=== PATIENT | female | born 1940 | race African-American/Black ===

== ENCOUNTER 2021-03-27 06:19 | Inpatient (IN) | payer MEDICARE ==
[~2021-03-27] VITALS: Ht 165.1 cm; Wt 61.2 kg
[2021-03-27] MEDS ORDERED: HYDR-4135 MT (07:56)
[2021-03-27] MEDS ORDERED: FERR325T6 MT (07:56)
[2021-03-27] MEDS ORDERED: LEVO50TA8 MT (07:56)
[2021-03-27] MEDS ORDERED: GLYB5TAB7 PO (07:56)
[2021-03-27] MEDS ORDERED: ALLO100T MT (07:56)
[2021-03-27] MEDS ORDERED: ASPI-1406 MT (07:56)
[2021-03-27] MEDS ORDERED: CHOL200010 PO (07:56)
[2021-03-27] MEDS ORDERED: COR6 MT (07:56)
[2021-03-27] MEDS ORDERED: PRAV40TA58 MT (07:56)
[2021-03-27] MEDS ORDERED: SPIR25TA6 MT (07:56)
[2021-03-27] MEDS ORDERED: MAGN400T7 MT (07:56)
[2021-03-27] MEDS ORDERED: LISI2.5T47 MT (07:56)
[2021-03-27] MEDS ORDERED: POTA20TA82 MT (07:56)
[2021-03-27] MEDS ORDERED: SITA1TAB2 MT (07:56)
[2021-03-27] MEDS ORDERED: HEPARIN SODIUM 1,000 UNIT/1ML VIAL IV ONE (08:23)
[2021-03-27] MEDS ORDERED: LIDOCAINE HCL 1% 20ML VIAL (Pyxis) INJ ONE (08:23)
[2021-03-27] MEDS ORDERED: IODIXANOL 320MG/ML 100 ML BOTTLE IV ONE (08:24)
[2021-03-27] MEDS ORDERED: FENTANYL CITRATE/PF 50MCG/ML 2ML VIAL ONE (09:45)
[2021-03-27] MEDS ORDERED: MIDAZOLAM HCL 2 MG/2 ML VIAL ONE (09:46)
[2021-03-27] MEDS ORDERED: IOHEXOL-300 100 ML BOTTLE ONE (10:17)
[2021-03-27] MEDS ORDERED: ACETAMINOPHEN 325MG TABLET PO PRN (10:45)
[2021-03-27] MEDS ORDERED: ONDANSETRON HCL 4MG/2ML INJ IV PRN (10:45)
[2021-03-27] MEDS ORDERED: ATROPINE SULFATE 1MG/10ML SYR IV PRN (10:45)
[2021-03-27] MEDS ORDERED: CLOPIDOGREL 75MG TABLET ONE (10:51)
[2021-03-27] MEDS ORDERED: ASPIRIN 325MG TABLET ONE (10:51)
[2021-03-27 11:13] VITALS: BP 144/55
[2021-03-27 11:39] VITALS: BP 144/55
[2021-03-27] MEDS ORDERED: DEXTROSE 50% WATER 50ML SYRINGE IV PRN (17:00)
[2021-03-27] MEDS: BLOOD SUGAR DIAGNOSTIC STRIP TEST SCH ×2 (17:06→20:30)
[2021-03-27] MEDS: INSULIN LISPRO 100 UNITS/ML SUBCUT SCH ×2 (17:20→20:31)
[2021-03-27 20:04] VITALS: BP 135/54
[2021-03-27 22:04] VITALS: BP 146/51
[2021-03-28] VITALS (13 sets, daily range): BP systolic 102–189; BP diastolic 42–82
[2021-03-28] MEDS ORDERED: CLONIDINE 0.2MG TABLET PO PRN (01:45)
[2021-03-28] MEDS: BLOOD SUGAR DIAGNOSTIC STRIP TEST SCH ×2 (06:22→10:48)
[2021-03-28] MEDS: INSULIN LISPRO 100 UNITS/ML SUBCUT SCH ×2 (07:19→10:48)
[2021-03-28 07:33] LABS: BASOPHILS % 0.8 % (0.0-2.0); EOSINOPHILS % 2.7 % (0.0-5.0); HEMATOCRIT. 33.9 % (36.0-48.0); HEMOGLOBIN. 11.1 g/dL (12.0-16.0); LYMPHOCYTES % 23.2 % (20.0-50.0); MEAN CORPUSCULAR HEMOGLOBIN 28.9 pg (28.0-32.0); MEAN CORPUSCULAR VOLUME 88.3 fL (81.0-99.0); MEAN PLATELET VOLUME 10.1 fl (7.4-10.4); MONOCYTES % 10.1 % (2.0-8.0); NEUTROPHILS % 63.2 % (40.0-76.0); PLATELET 164 x1000/uL (130-400); RED BLOOD CELL COUNT 3.84 mill/uL (4.2-5.4); RED CELL DISTRIBUTION WIDTH 16.1 % (11.6-14.6)
[2021-03-28] MEDS ORDERED: ASPIRIN 325MG TABLET PO SCH (09:00)
[2021-03-28] MEDS ORDERED: CLOPIDOGREL 75MG TABLET PO SCH (09:00)
== END 2021-03-28 11:23 | disposition home health service (06) | DRG 254 ==
LOC: CCL 06:19 → 3WST 06:20
PROVIDERS: ADMIT Specialist; ATTEND Specialist
PROC: 047L3ZZ Dilation of Left Femoral Artery, Percutaneous Approach (ICD-10-PCS; principal; 2021-03-27)
PROC: B41GYZZ Fluoroscopy of Left Lower Extremity Arteries using Other Contrast (ICD-10-PCS; 2021-03-27)
DX: I25.10 Atherosclerotic heart disease of native coronary artery without angina pectoris (principal); I70.202 Unspecified atherosclerosis of native arteries of extremities, left leg; E11.51 Type 2 diabetes mellitus with diabetic peripheral angiopathy without gangrene; I10 Essential (primary) hypertension; Z79.84 Long term (current) use of oral hypoglycemic drugs; I25.2 Old myocardial infarction; Z86.73 Personal history of transient ischemic attack (TIA), and cerebral infarction without residual deficits; Z89.512 Acquired absence of left leg below knee; Z95.5 Presence of coronary angioplasty implant and graft; Z79.899 Other long term (current) drug therapy; Z79.890 Hormone replacement therapy
CPT/HCPCS: 36415; 37226; 75710; 80048; 82962; 83036; 85025; 85347; 93005; C1725; C1760; C1769; C1876; C1893; C1894; J1644; J1815; J2250; J3010; J3490; Q9967